=== PATIENT | female | born 1935 | race Caucasian/White ===

== ENCOUNTER 2016-11-25 18:41 | Emergency (ER) | payer MEDICARE, BC ==
[~2016-11-25] VITALS: Ht 165.1 cm; Wt 68.7 kg
[~2016-11-25 18:41] MED LIST: CLOP75 PO; DEXI30CA2 PO; ENAL20TA PO; GLUCTAB PO; KCL10C PO; NITR.2T TD; RALO1TAB13 PO; RIVA9.5T TD; ROSU10 PO; SERT-132 PO; TOPR50TA PO; VITA500015 PO
[2016-11-25 18:54] VITALS: BP 191/124; PULSE 101; RESP 16; TEMP 99.7; O2SAT 97
[2016-11-25 19:11] VITALS: BP 163/94
[2016-11-25] MEDS ORDERED: NITR1SUB3 SL (19:40)
[2016-11-25] MEDS ORDERED: POTA10CA PO (19:40)
[2016-11-25] MEDS ORDERED: METF500T PO (19:40)
[2016-11-25] MEDS ORDERED: QUET1TAB9 PO (19:40)
[2016-11-25] MEDS ORDERED: METO25TA6 PO (19:40)
[2016-11-25] MEDS ORDERED: CLOP75TA PO (19:40)
[2016-11-25] MEDS ORDERED: MEMA21CA PO (19:40)
[2016-11-25] MEDS ORDERED: ROSU10 PO (19:40)
[2016-11-25] MEDS ORDERED: CHLO25TA2 PO (19:40)
[2016-11-25] MEDS ORDERED: CELE1CAP8 PO (19:40)
[2016-11-25] MEDS ORDERED: CIPR250T52 PO (19:40)
[2016-11-25] MEDS ORDERED: ALPR0.25 PO (19:40)
[2016-11-25] MEDS ORDERED: NITR0.2D T-DERMAL (19:40)
[2016-11-25] MEDS ORDERED: DEXI60CA PO (19:40)
[2016-11-25] MEDS ORDERED: ENAL20TA PO (19:40)
[2016-11-25] MEDS ORDERED: SERT-129 PO (19:40)
[2016-11-25 20:00] VITALS: BP 178/101
[2016-11-25] MEDS ORDERED: ONDANSETRON HCL 4 MG/2 ML VIAL IV PUSH ONE (20:00)
[2016-11-25] MEDS ORDERED: SODIUM CHLORIDE 0.9% FLUSH 5 ML FLUSH IVF PRN (20:00)
[2016-11-25] MEDS ORDERED: PANTOPRAZOLE SODIUM 40 MG VIAL IV PUSH ONE (20:00)
[2016-11-25 20:14] LABS: BLOOD, URINE SMALL (NEG); GLUCOSE,URINE NEG (NEG); KETONE, URINE NEG (NEG); NITRITE,URINE NEG (NEG)
[2016-11-25 20:17] LABS: AUTOMATED NEUTROPHIL # 5.1 TH/MM3 (1.8-7.7); BASOPHIL # 0.1 TH/MM3 (0-0.2); BASOPHIL % 0.9 % (0.0-2.0); EOSINOPHIL # 0.1 TH/MM3 (0-0.4); EOSINOPHIL % 1.4 % (0.0-4.0); HEMATOCRIT 47.1 % (35.0-46.0); HEMO FLAGS DIFF FINAL; LYMPH % 16.1 % (9.0-44.0); LYMPHOCYTE # 1.1 TH/MM3 (1.0-4.8); MEAN CELL VOLUME 84.1 FL (80.0-100.0); MEAN CORPUSCULAR HEMOGLOBIN 27.1 PG (27.0-34.0); MEAN CORPUSCULAR HGB CONC 32.2 % (32.0-36.0); MONO % 9.6 % (0.0-8.0); PLATELET COUNT 262 TH/MM3 (150-450); RED BLOOD COUNT 5.61 MIL/MM3 (4.00-5.30); RED CELL DISTRIBUTION WIDTH 14.2 % (11.6-17.2); WHITE BLOOD COUNT 7.1 TH/MM3 (4.0-11.0)
[2016-11-25 20:22] LABS: CHLORIDE 104 MEQ/L (98-107); POTASSIUM 3.3 MEQ/L (3.5-5.1); SODIUM (NA) 141 MEQ/L (136-145)
[2016-11-25 20:23] LABS: URINE COLOR YELLOW (YELLW/STRAW)
[2016-11-25 20:25] LABS: COMMENT (UR) CATH-CULT NOT IND; CULTURE IF INDICATED CATH CULTURE NOT IND; MUCUS URINE MOD /lpf (OCC); RBC, URINE 0-3 /hpf (0-3); WBC, URINE 0-2 /hpf (0-5)
[2016-11-25 20:26] LABS: ANION GAP 11 MEQ/L (5-15); APTT (PATIENT) 24.9 SEC (24.3-30.1); BICARBONATE 25.8 MEQ/L (21.0-32.0); BLOOD UREA NITROGEN 15 MG/DL (7-18); INTERNATIONAL NORMALIZED RATIO 1.1 RATIO; PROTHROMBIN TIME - PATIENT 11.8 SEC (9.8-11.6)
[2016-11-25 20:28] LABS: ALT (GPT) 18 U/L (10-53); AST (GOT) 22 U/L (15-37)
[2016-11-25 20:29] LABS: GLOMERULAR FILTRATION RATE 48 ML/MIN (>89)
[2016-11-25 20:30] LABS: TOTAL BILIRUBIN ADULT 0.7 MG/DL (0.2-1.0)
[2016-11-25 20:31] LABS: ALKALINE PHOSPHATASE 59 U/L (45-117); CREATINE KINASE 139 U/L (26-192)
--- NOTE | 2016-11-25 20:38 | RADHPO ---
EXAM DATE/TIME: 11/25/2016 20:22 [facility] COMPARISON: No previous studies available for comparison. INDICATIONS : Shortness of breath. MEDICAL HISTORY : Hypertension. Myocardial infarction. SURGICAL HISTORY : Stents. Cardiac cath. ENCOUNTER: Initial ACUITY: 1 day PAIN SCORE: 0/10 LOCATION: Bilateral chest FINDINGS: A single view of the chest demonstrates the lungs to be symmetrically aerated without evidence of mas s, infiltrate or effusion. The cardiomediastinal contours are unremarkable. Osseous structures are intact. CONCLUSION: No acute disease. Mele Morris MD on November 25, 2016 at 20:37 Board Certified Radiologist. This report was verified electronically.
[2016-11-25 20:47] LABS: CKMB 2.3 NG/ML (0.5-3.6)
[2016-11-25] MEDS ORDERED: PIPERACIL-TAZO 3.375 GM PREMIX 50 ML IV ONE (21:00)
[2016-11-25 21:01] VITALS: BP 176/96; PULSE 83; RESP 18; TEMP 97.5; O2SAT 95
[2016-11-25] MEDS ORDERED: SODIUM CHLORID 0.9% 500 ML INJ 500 ML IV ONE (21:45)
[2016-11-25] MEDS ORDERED: POTASSIUM CHLORIDE 20 MEQ CONTROLLED RELEASE TAB PO ONE (21:45)
[2016-11-25 22:08] VITALS: BP 172/95; PULSE 92; RESP 18; O2SAT 95
[2016-11-25] MEDS ORDERED: IOHEXOL 300 MG/ML 100 ML BTL (for Rad CT) IV ONE (22:12)
--- NOTE | 2016-11-25 22:14 | RADHPO ---
EXAM DATE/TIME: 11/25/2016 21:48 [facility] COMPARISON: No previous studies available for comparison. INDICATIONS : Altered mental status. RADIATION DOSE: 59.13 CTDIvol (mGy) MEDICAL HISTORY : Diabetes mellitus type 2. Hypertension. Dementia. SURGICAL HISTORY : Coronary artery stent. Kyphoplasty. ENCOUNTER: Initial ACUITY: 1 day PAIN SCALE: 4/10 LOCATION: cranial TECHNIQUE: Multiple contiguous axial images were obtained of the head. Using automated exposure control and adj ustment of the mA and/or kV according to patient size, radiation dose was kept as low as reasonably a chievable to obtain optimal diagnostic quality images. FINDINGS: No signs of acute infarct, intracranial hemorrhage, or mass. There is patchy periventricular white ma tter disease most likely on the basis of chronic microvascular ischemic disease. Chronic opacificatio n right maxillary sinus. No fractures. CONCLUSION: No acute disease. Mele Morris MD on November 25, 2016 at 22:12 Board Certified Radiologist. This report was verified electronically.
--- NOTE | 2016-11-25 22:16 | RADHPO ---
EXAM DATE/TIME: 11/25/2016 21:53 [facility] COMPARISON: No previous studies available for comparison. INDICATIONS : Abdominal pain. IV CONTRAST: 100 cc Omnipaque 300 (iohexol) IV ORAL CONTRAST: No oral contrast ingested. RADIATION DOSE: 9.88 CTDIvol (mGy) MEDICAL HISTORY : Hypertension. Diabetes mellitus type 2. Dementia. SURGICAL HISTORY : Kyphoplasty. Coronary artery stent. ENCOUNTER: Initial ACUITY: 1 day PAIN SCALE: 4/10 LOCATION: Bilateral abdomen/pelvis. TECHNIQUE: Volumetric scanning of the abdomen and pelvis was performed. Using automated exposure control and ad justment of the mA and/or kV according to patient size, radiation dose was kept as low as reasonably achievable to obtain optimal diagnostic quality images. FINDINGS: Small hiatal hernia. Liver, gallbladder, spleen, pancreas, adrenal glands, right kidney are unremarka ble. There is a small cortical cyst left mid pole kidney anteriorly measuring 9.6 mm and parapelvic c ysts of the left kidney are suspected. Urinary bladder, uterus and ovaries are unremarkable. Small fa t containing left inguinal hernia. No inflammatory changes are seen within the abdomen or pelvis. Den se calcification of the mitral anulus is noted. No inflammatory changes are seen. Atherosclerotic moody cifications of the aorta and iliac vessels are seen. There is evidence of previous compression deform ity at L5 of moderate severity with kyphoplasty cement seen. Lung bases are clear. CONCLUSION: No acute disease. Mele Morris MD on November 25, 2016 at 22:13 Board Certified Radiologist. This report was verified electronically.
[2016-11-25] MEDS ORDERED: PROM25TA5 PO (23:10)
--- NOTE | 2016-11-25 23:14 | PD ---
HPI Chief Complaint: Complaint Time Seen by Provider: 19:55 Travel History International Travel<30 days: No Contact w/Intl Traveler<30days: No Traveled to known affect area: No History of Present Illness HPI 80-year-old female presents to the emergency department by private transportation in the care of family for evaluation of possible UTI and agitation. According to the family patient has dementia and memory disturbance and since Thursday has been agitated. Previous episodes of similar presentation of or related to a urinary tract infection. Patient's primary care provider Dr. Ojeda was notified on Thursday and Cipro as prescribed over the phone and patient has had 6 doses of Cipro. Family is still concerned because today she had poor appetite and she might be nauseated or trying to vomit. Family members have not noticed fever or temperature elevation. Patient lives in her own home but has 24 hour day nursing support. Patient's had no recent injury or fall reportedly. Patient has not complained of any area of discomfort although seems to have some type of discomfort related to her abdomen. No report of diarrhea. No report of any recent respiratory illness symptoms. Patient does have history of heart disease with previous stent placement times one, also history of memory impairment/dementia, diminished hearing, hypertension, dyslipidemia, diabetes, and anxiety depression. PFSH Past Medical History Narrative Medical CAD, cardiac catheterization with stent 1, dyslipidemia, hypertension, diabetes , dementia, impaired hearing, lupus, kyphoplasty, no tobacco use no alcohol use no substance use, family history CAD, nursing notes reviewed Arthritis: Yes Asthma: No Autoimmune Disease: Yes (lupus) Anxiety: Yes Depression: No Heart Rhythm Problems: No Cancer: No Cardiac Catheterization: Yes Cardiovascular Problems: Yes (htn on meds, OH x 1 stent) High Cholesterol: No Chest Pain: No Congestive Heart Failure: No COPD: No Cerebrovascular Accident: No Dementia: Yes (ON NAMENDA AND EXELON) Diabetes: Yes (type 2) Patient Takes Glucophage: Yes Diminished Hearing: Yes ([place]KAH) Endocrine: No Gastrointestinal Disorders: No Genitourinary: No Headaches: No Hepatitis: No Hiatal Hernia: No Hypertension: Yes Medical other: Yes (ARTHRITIS,HIGH CHOLESTEROL) Musculoskeletal: Yes (carpal tunnel syndrome in both hands) Psychiatric: No Respiratory: No Immunizations Current: No Myocardial Infarction: Yes Seizures: No Sickle Cell Disease: No Sleep Apnea: No Thyroid Disease: No Tetanus Vaccination: < 5 Years ?: Not Menopausal: Yes Past Surgical History Abdominal Surgery: No AICD: No Cardiac Surgery: Yes (STENT) Coronary Artery Bypass Graft: No Ear Surgery: No Endocrine Surgery: No Eye Surgery: No Genitourinary Surgery: No Gynecologic Surgery: No Neurologic Surgery: Yes (KYPHOPLASTY) Oral Surgery: No Pacemaker: No Thoracic Surgery: No Other Surgery: Yes Family History Family Myocardial Infarction: Yes (FATHER) Social History Alcohol Use: No Tobacco Use: No Substance Use: No Allergies-Medications (Allergen,Severity, Reaction): Coded Allergies: No Known Allergies (Verified , 11/25/16) Reported Meds & Prescriptions Reported Meds & Active Scripts Active Phenergan (Promethazine HCl) 25 Mg Tab 25 Mg PO Q6H PRN Reported Chlorthalidone 25 Mg Tab 12.5 Mg PO DAILY Clopidogrel (Clopidogrel Bisulfate) 75 Mg Tab 75 Mg PO DAILY Nitroglycerin SL (Nitroglycerin) 0.4 Mg Subl 0.4 Mg SL DIRECTED PRN ONE TABLET UNDER THE TONGUE NEEDED FOR CHEST PAIN, MAY REPEAT EVERY FIVE MINUTES FOR A TOTAL OF 3 DOSES OR CALL 911 IF NO RELIEF Enalapril (Enalapril Maleate) 20 Mg Tab 20 Mg PO DAILY Crestor (Rosuvastatin Calcium) 10 Mg Tab 10 Mg PO DAILY Nitro-Dur Patch 24 HR (Nitroglycerin) 0.2 Mg/Hr Patch 0.2 Mg T-DERMAL DAILY Namenda Xr (Memantine) 21 Mg Caper 21 Mg PO DAILY Sertraline (Sertraline HCl) 100 Mg Tab 100 Mg PO DAILY Quetiapine (Quetiapine Fumarate) 200 Mg Tab 200 Mg PO BID Alprazolam 0.25 Mg Tab 0.25 Mg PO BID NEB PRN Metoprolol Succinate ER 24 HR (Metoprolol Succinate) 25 Mg Tab 25 Mg PO DAILY Dexilant (Dexlansoprazole) 60 Mg Cap 60 Mg PO DAILY Metformin (Metformin HCl) 500 Mg Tab 500 Mg PO BIDPC With meals Cipro (Ciprofloxacin HCl) 250 Mg Tab 250 Mg PO BID Review of Systems Except as stated in HPI: all other systems reviewed are Neg General / Constitutional: No: Fever, Chills HENT: No: Congestion Cardiovascular: No: Chest Pain or Discomfort Respiratory: No: Cough Gastrointestinal: Positive: Nausea, Abdominal Pain (possible per family none per patient), No: Vomiting Genitourinary: No: Dysuria, Decreased Urinary Output Musculoskeletal: No: Myalgias, Arthralgias, Limited ROM Skin: No Rash Neurologic: Positive: Change in Mentation, No: Weakness, Focal Abnormalities, Coordination Problem, Paresthesia, Incontinence Psychiatric: Positive: Anxiety Endocrine: No: Heat Intolerance, Cold Intolerance Hematologic/Lymphatic: No: Easy Bruising Physical Exam Narrative GENERAL: Well-developed well-nourished female in no acute distress no respiratory distress intermittently agitated with medical staff and physical exam but readily consolable by family members SKIN: Warm and dry. HEAD: Atraumatic. Normocephalic. EYES: Pupils equal and round. No scleral icterus. No injection or drainage. ENT: No nasal bleeding or discharge. Mucous membranes pink and moist. NECK: Trachea midline. No JVD. CARDIOVASCULAR: Regular rate and rhythm. RESPIRATORY: No accessory muscle use. Clear to auscultation. Breath sounds equal bilaterally. GASTROINTESTINAL: Abdomen soft, non-tender, nondistended. Hepatic and splenic margins not palpable. MUSCULOSKELETAL: Extremities without clubbing, cyanosis, or edema. No obvious deformities. NEUROLOGICAL: Awake and alert. No obvious cranial nerve deficits. Motor grossly within normal limits. Five out of 5 muscle strength in the arms and legs. Normal speech. PSYCHIATRIC: Appropriate mood and affect; insight and judgment normal. Data Data Last Documented VS Vital Signs Date Time Temp Pulse Resp B/P Pulse Ox O2 Delivery O2 Flow Rate FiO2 11/25/16 23:26 89 16 183/94 100 11/25/16 22:08 Room Air 11/25/16 21:01 97.5 Orders Complete Blood Count With Diff (11/25/16 19:55) Comprehensive Metabolic Panel (11/25/16 19:55) Lipase (11/25/16 19:55) Lactic Acid (11/25/16 19:55) Prothrombin Time / Inr (Pt) (11/25/16 19:55) Act Partial Throm Time (Ptt) (11/25/16 19:55) Urinalysis - C+S If Indicated (11/25/16 19:55) Ct Abd/Pel W Iv Contrast(Rout) (11/25/16 19:55) Iv Access Insert/Monitor (11/25/16 19:55) Ecg Monitoring (11/25/16 19:55) Oximetry (11/25/16 19:55) Sodium Chloride 0.9% Flush (Ns Flush) (11/25/16 20:00) Electrocardiogram (11/25/16 19:55) Chest, Single Ap (11/25/16 19:55) Blood Culture (11/25/16 19:55) Ct Brain W/O Iv Contrast(Rout) (11/25/16 ) Ckmb (Isoenzyme) Profile (11/25/16 19:55) Troponin I (11/25/16 19:55) Ondansetron Inj (Zofran Inj) (11/25/16 20:00) Pantoprazole Inj (Protonix Inj) (11/25/16 20:00) CKMB (11/25/16 19:57) CKMB% (11/25/16 19:57) Cath For Specimen (11/25/16 20:35) Piperacil-Tazo 3.375 Gm Premix (Zosyn 3. (11/25/16 21:00) Sodium Chlorid 0.9% 500 Ml Inj (Ns 500 M (11/25/16 21:45) Lactic Acid (11/25/16 21:50) Potassium Chloride (Kcl) (11/25/16 21:45) Iohexol 300 Inj (Rad Ct) (Omnipaque 300 (11/25/16 22:12) Labs Laboratory Tests Test 11/25/16 11/25/16 11/25/16 19:50 19:57 21:45 Urine Color YELLOW Urine Turbidity CLEAR Urine pH 6.0 Urine Specific [place] 1.018 Urine Protein 30 mg/dL Urine Glucose (UA) NEG mg/dL Urine Ketones NEG mg/dL Urine Occult Blood SMALL Urine Nitrite NEG Urine Bilirubin NEG Urine Leukocyte Esterase NEG Urine RBC 0-3 /hpf Urine WBC 0-2 /hpf Urine Mucus MOD /lpf Microscopic Urinalysis Comment CATH-CULT NOT IND Lactic Acid Level 3.0 mmol/L 2.3 mmol/L White Blood Count 7.1 TH/MM3 Red Blood Count 5.61 MIL/MM3 Hemoglobin 15.2 GM/DL Hematocrit 47.1 % Mean Corpuscular Volume 84.1 FL Mean Corpuscular Hemoglobin 27.1 PG Mean Corpuscular Hemoglobin 32.2 % Concent Red Cell Distribution Width 14.2 % Platelet Count 262 TH/MM3 Mean Platelet Volume 9.4 FL Neutrophils (%) (Auto) 72.0 % Lymphocytes (%) (Auto) 16.1 % Monocytes (%) (Auto) 9.6 % Eosinophils (%) (Auto) 1.4 % Basophils (%) (Auto) 0.9 % Neutrophils # (Auto) 5.1 TH/MM3 Lymphocytes # (Auto) 1.1 TH/MM3 Monocytes # (Auto) 0.7 TH/MM3 Eosinophils # (Auto) 0.1 TH/MM3 Basophils # (Auto) 0.1 TH/MM3 CBC Comment DIFF FINAL Differential Comment Prothrombin Time 11.8 SEC Prothromb Time International 1.1 RATIO Ratio Activated Partial 24.9 SEC Thromboplast Time Sodium Level 141 MEQ/L Potassium Level 3.3 MEQ/L Chloride Level 104 MEQ/L Carbon Dioxide Level 25.8 MEQ/L Anion Gap 11 MEQ/L Blood Urea Nitrogen 15 MG/DL Creatinine 1.10 MG/DL Estimat Glomerular Filtration 48 ML/MIN Rate Random Glucose 114 MG/DL Calcium Level 8.8 MG/DL Total Bilirubin 0.7 MG/DL Aspartate Amino Transf 22 U/L (AST/SGOT) Alanine Aminotransferase 18 U/L (ALT/SGPT) Alkaline Phosphatase 59 U/L Total Creatine Kinase 139 U/L Creatine Kinase MB 2.3 NG/ML Troponin I LESS THAN 0.02 NG/ML Total Protein 7.9 GM/DL Albumin 3.6 GM/DL Lipase 238 U/L [facility] Medical Decision Making Medical Screen Exam Complete: Yes Emergency Medical Condition: Yes Medical Record Reviewed: Yes Interpretation(s) EKG normal sinus rhythm rate 89 Q wave inferiorly with inverted T-wave in lead 3 age-indeterminate nonspecific essentially unchanged from EKG 10/08/14 Laboratory Tests Test 11/25/16 11/25/16 11/25/16 19:50 19:57 21:45 Urine Color YELLOW Urine Turbidity CLEAR Urine pH 6.0 Urine Specific [place] 1.018 Urine Protein 30 mg/dL Urine Glucose (UA) NEG mg/dL Urine Ketones NEG mg/dL Urine Occult Blood SMALL Urine Nitrite NEG Urine Bilirubin NEG Urine Leukocyte Esterase NEG Urine RBC 0-3 /hpf Urine WBC 0-2 /hpf Urine Mucus MOD /lpf Microscopic Urinalysis Comment CATH-CULT NOT IND Lactic Acid Level 3.0 mmol/L 2.3 mmol/L White Blood Count 7.1 TH/MM3 Red Blood Count 5.61 MIL/MM3 Hemoglobin 15.2 GM/DL Hematocrit 47.1 % Mean Corpuscular Volume 84.1 FL Mean Corpuscular Hemoglobin 27.1 PG Mean Corpuscular Hemoglobin 32.2 % Concent Red Cell Distribution Width 14.2 % Platelet Count 262 TH/MM3 Mean Platelet Volume 9.4 FL Neutrophils (%) (Auto) 72.0 % Lymphocytes (%) (Auto) 16.1 % Monocytes (%) (Auto) 9.6 % Eosinophils (%) (Auto) 1.4 % Basophils (%) (Auto) 0.9 % Neutrophils # (Auto) 5.1 TH/MM3 Lymphocytes # (Auto) 1.1 TH/MM3 Monocytes # (Auto) 0.7 TH/MM3 Eosinophils # (Auto) 0.1 TH/MM3 Basophils # (Auto) 0.1 TH/MM3 CBC Comment DIFF FINAL Differential Comment Prothrombin Time 11.8 SEC Prothromb Time International 1.1 RATIO Ratio Activated Partial 24.9 SEC Thromboplast Time Sodium Level 141 MEQ/L Potassium Level 3.3 MEQ/L Chloride Level 104 MEQ/L Carbon Dioxide Level 25.8 MEQ/L Anion Gap 11 MEQ/L Blood Urea Nitrogen 15 MG/DL Creatinine 1.10 MG/DL Estimat Glomerular Filtration 48 ML/MIN Rate Random Glucose 114 MG/DL Calcium Level 8.8 MG/DL Total Bilirubin 0.7 MG/DL Aspartate Amino Transf 22 U/L (AST/SGOT) Alanine Aminotransferase 18 U/L (ALT/SGPT) Alkaline Phosphatase 59 U/L Total Creatine Kinase 139 U/L Creatine Kinase MB 2.3 NG/ML Troponin I LESS THAN 0.02 NG/ML Total Protein 7.9 GM/DL Albumin 3.6 GM/DL Lipase 238 U/L Last Impressions Chest X-Ray 11/25/161954 Signed Impressions: Service Date/Time: Friday, November 25, 2016 20:22 - CONCLUSION: No acute disease. Mele Morris MD CT brain w/o: FINDINGS: No signs of acute infarct, intracranial hemorrhage, or mass. There is patchy periventricular white matter disease most likely on the basis of chronic microvascular ischemic disease. Chronic opacification right maxillary sinus. No fractures. CONCLUSION: No acute disease. Mele Morris MD on November 25, 2016 at 22:12 Board Certified Radiologist. This report was verified electronically. CT abd/pel w/ contrast: FINDINGS: Small hiatal hernia. Liver, gallbladder, spleen, pancreas, adrenal glands, right kidney are unremarkable. There is a small cortical cyst left mid pole kidney anteriorly measuring 9.6 mm and parapelvic cysts of the left kidney are suspected. Urinary bladder, uterus and ovaries are unremarkable. Small fat containing left inguinal hernia. No inflammatory changes are seen within the abdomen or pelvis. Dense calcification of the mitral anulus is noted. No inflammatory changes are seen. Atherosclerotic calcifications of the aorta and iliac vessels are seen. There is evidence of previous compression deformity at L5 of moderate severity with kyphoplasty cement seen. Lung bases are clear. CONCLUSION: No acute disease. Mele Morris MD on November 25, 2016 at 22:13 Board Certified Radiologist. This report was verified electronically. Differential Diagnosis Agitation, altered mental status, UTI, sepsis, ACS, OH, gastroenteritis, viral syndrome, diverticulitis, colitis Narrative Course IV access obtained specimens collected and sent for resulting EKG performed which reveals no acute ST elevation or injury pattern change prior Q wave noted inferiorly which is unchanged from 10/08/14 Patient administered IV fluid bolus 500 cc times one Lab values resulted found to be grossly within normal range except for lactic acid of 3.0 repeated 2 hours has decreased without any medication intervention other than IV fluids to 2.3 Extensive discussion conducted with patient as much as she can understand daughter at bedside and son-in-law at bedside as well as other daughter who is had to leave prior discussion conducted prior to her departure; family members want to take the patient home she does show evidence of improving from a objective/diagnostic standpoint she does take metformin and may be contributing somewhat to her lactic acid along with some mild dehydration; at this time there is no focality for infectious source of symptoms as well as on lab values or imaging studies. Patient's case discussed with her primary care provider who knows the patient very well yesterday patient on Cipro on Thursday. Plan will be to allow the patient to go home as family does not want her to stay as an observation and patient's primary is very access to see her tomorrow morning after 9 AM. Extensive conversation with family regarding no congestion no administration of metformin/Glucophage to the patient until well after 48 hours due to receiving IV contrast for imaging study reveals no acute process. Physician Communication Physician Communication discussed with Dr Ojeda--known well to patiient discussed in detail will see in office in the am family to call Diagnosis Primary Impression: Nausea Additional Impressions: Dementia Hypokalemia Diabetes mellitus type 2 Referrals: Vimal Ojeda MD 1 day Patient Instructions: General Instructions Additional Instructions: NO METFORMIN/GLUCOPHAGE USE FOR GREATER THAN [address] of CT ( may restart medication after Thursday11/28/16 after 12 noon) Complete current course of antibiotic Cipro as prescribed Follow-up with your primary care physician Dr. Ojeda call office in a.m. to schedule follow-up appointment times one day Return to the emergency department for any concerns or change in condition Increase fluid hydration Monitor temperature every 4 hours with thermometer and administer as needed acetaminophen/Tylenol every 4 hours for fever 100.4F or greater Med/Other Pt SpecificInfo: Prescription(s) given Scripts Promethazine (Phenergan)25 Mg Tab25 Mg PO Q6H PRN (Nausea/Vomiting) #7 TAB Ref 0 Prov:Lashonda Cuadra MD 11/25/16 Disposition: 01 DISCHARGE HOME Condition: Stable Lashonda Cuadra MD Nov 25, 2016 23:14
[2016-11-25 23:26] VITALS: BP 183/94
--- NOTE | 2016-11-26 22:36 | EKG ---
Date Performed: 11/25/2016 Time Performed: 20:01:14 PTAGE: 80 years EKG: Sinus rhythm Inferior T wave changes are nonspecific Borderline ECG PREVIOUS TRACING : 10/08/2014 12.37 Compared to prior tracing no significant change DOCTOR: Thomas Chavez Interpretating Date/Time 11/26/2016 22:33:03
== END 2016-11-25 23:29 | disposition home or self-care (01) ==
LOC: PHED 18:41
DX: F03.90 Unspecified dementia, unspecified severity, without behavioral disturbance, psychotic disturbance, mood disturbance, and anxiety (principal); E87.6 Hypokalemia; E11.9 Type 2 diabetes mellitus without complications; M32.9 Systemic lupus erythematosus, unspecified; F41.9 Anxiety disorder, unspecified; I10 Essential (primary) hypertension; I25.2 Old myocardial infarction; Z79.4 Long term (current) use of insulin; R94.31 Abnormal electrocardiogram [ECG] [EKG]
CPT/HCPCS: 70450; 71010; 74177; 80053; 81001; 82550; 82552; 83605; 83690; 84484; 85025; 85610; 85730; 87040; 93005; 96365; 96375; 99284; C9113; J2405; J2543; J7040; P9612; Q9967

== ENCOUNTER 2017-08-28 12:05 | Emergency (ER) | payer MEDICARE, BC ==
[~2017-08-28 12:05] MED LIST changes: +ALPR0.25 PO; +CHLO25TA2 PO; +CIPR250T52 PO; -CLOP75 PO; +CLOP75TA PO; -DEXI30CA2 PO; +DEXI60CA PO; -GLUCTAB PO; -KCL10C PO; +MEMA21CA PO; +METF500T PO; +METO25TA6 PO; -NITR.2T TD; +NITR0.2D T-DERMAL; +NITR1SUB3 SL; +PROM25TA5 PO; +QUET1TAB9 PO; -RALO1TAB13 PO; -RIVA9.5T TD; +SERT-129 PO; -SERT-132 PO; -TOPR50TA PO; -VITA500015 PO
[2017-08-28 12:20] VITALS: BP 136/86; PULSE 126; RESP 17; TEMP 97.5; O2SAT 96
[2017-08-28] MEDS ORDERED: DIGO0.127 PO (12:37)
[2017-08-28] MEDS ORDERED: CELE200C PO (12:37)
--- NOTE | 2017-08-28 12:44 | PD ---
HPI Chief Complaint: Cardiac Complaint Time Seen by Provider: 12:25 Travel History International Travel<30 days: No Contact w/Intl Traveler<30days: No Traveled to known affect area: No History of Present Illness HPI This patient is brought in by her caregiver. She has history of A. fib and has had issues with elevated heart rate lately. She takes digoxin and metoprolol. She had been taking 25 twice a day of metoprolol but that has been recently increased to 25 at night and 50 in the morning. Caregiver took her pulse today and noticed it was elevated and her physician advised her to bring her here. Patient has no chest pain or presyncopal symptoms. She actually feels very well. Severity is mild. Duration one day. Comes are partially alleviated by her medications. No exacerbating factors. PFSH Past Medical History Arthritis: Yes Asthma: No Autoimmune Disease: Yes (lupus) Anxiety: Yes Depression: No Heart Rhythm Problems: No Cancer: No Cardiac Catheterization: Yes Cardiovascular Problems: Yes High Cholesterol: No Chest Pain: No Congestive Heart Failure: No COPD: No Cerebrovascular Accident: No Dementia: Yes (ON NAMENDA AND EXELON) Diabetes: Yes Patient Takes Glucophage: Yes Diminished Hearing: Yes ([place]) Endocrine: No Gastrointestinal Disorders: No Genitourinary: No Headaches: No Hepatitis: No Hiatal Hernia: No Hypertension: Yes Medical other: Yes (ARTHRITIS,HIGH CHOLESTEROL) Musculoskeletal: Yes (carpal tunnel syndrome in both hands) Psychiatric: No Respiratory: No Immunizations Current: No Myocardial Infarction: Yes Seizures: No Sickle Cell Disease: No Sleep Apnea: No Thyroid Disease: No Menopausal: Yes Past Surgical History Abdominal Surgery: No AICD: No Cardiac Surgery: Yes (STENT) Coronary Artery Bypass Graft: No Ear Surgery: No Endocrine Surgery: No Eye Surgery: No Genitourinary Surgery: No Gynecologic Surgery: No Neurologic Surgery: Yes (KYPHOPLASTY) Oral Surgery: No Pacemaker: No Thoracic Surgery: No Other Surgery: Yes Family History Family Myocardial Infarction: Yes (FATHER) Social History Alcohol Use: No Tobacco Use: No Substance Use: No Allergies-Medications (Allergen,Severity, Reaction): Coded Allergies: No Known Allergies (Verified , 08/28/17) Reported Meds & Prescriptions Reported Meds & Active Scripts Active Reported Digox (Digoxin) 0.125 Mg Tab 0.125 Mg PO DAILY Celebrex (Celecoxib) 200 Mg Cap 200 Mg PO DAILY Nitroglycerin SL (Nitroglycerin) 0.4 Mg Subl 0.4 Mg SL DIRECTED PRN ONE TABLET UNDER THE TONGUE NEEDED FOR CHEST PAIN, MAY REPEAT EVERY FIVE MINUTES FOR A TOTAL OF 3 DOSES OR CALL 911 IF NO RELIEF Enalapril (Enalapril Maleate) 20 Mg Tab 20 Mg PO DAILY Nitro-Dur Patch 24 HR (Nitroglycerin) 0.2 Mg/Hr Patch 0.2 Mg T-DERMAL DAILY Namenda Xr (Memantine) 21 Mg Caper 21 Mg PO DAILY Sertraline (Sertraline HCl) 100 Mg Tab 100 Mg PO DAILY Quetiapine (Quetiapine Fumarate) 200 Mg Tab 200 Mg PO BID Alprazolam 0.25 Mg Tab 0.25 Mg PO BID NEB PRN Metoprolol Succinate ER 24 HR (Metoprolol Succinate) 25 Mg Tab 25 Mg PO DAILY Dexilant (Dexlansoprazole) 60 Mg Cap 60 Mg PO DAILY Metformin (Metformin HCl) 500 Mg Tab 500 Mg PO BIDPC With meals Review of Systems General / Constitutional: No: Fever Eyes: No: Visual changes HENT: No: Headaches Cardiovascular: Positive: Irregular Rhythm, Tachycardia, No: Chest Pain or Discomfort Respiratory: No: Shortness of Breath Gastrointestinal: No: Abdominal Pain Genitourinary: No: Dysuria Musculoskeletal: No: Pain Skin: No Rash Neurologic: No: Weakness Psychiatric: No: Depression Endocrine: No: Polydipsia Hematologic/Lymphatic: No: Easy Bruising Physical Exam Narrative GENERAL: Well-nourished, well-developed patient in no apparent distress. SKIN: Focused skin assessment reveals no rash and nodules. Skin is Warm and dry. HEAD: Atraumatic. Normocephalic. EYES: Pupils equal and round. No scleral icterus. No injection or drainage. ENT: No nasal bleeding or discharge. Mucous membranes pink and moist. NECK: Trachea midline. No JVD. CARDIOVASCULAR: Irregularly irregular rhythm. No murmur appreciated. Heart rate 130 RESPIRATORY: No accessory muscle use. Clear to auscultation. Breath sounds equal bilaterally. GASTROINTESTINAL: Abdomen soft, non-tender, nondistended. Hepatic and splenic margins not palpable. MUSCULOSKELETAL: No obvious deformities. No clubbing. No cyanosis. No edema. NEUROLOGICAL: Awake and alert. No obvious cranial nerve deficits. Motor grossly within normal limits. Normal speech. PSYCHIATRIC: Appropriate mood and affect; insight and judgment reduced from dementia Data Data Last Documented VS Vital Signs Date Time Temp Pulse Resp B/P (MAP) Pulse Ox O2 Delivery O2 Flow Rate FiO2 08/28/17 13:58 64 18 130/75 (93) 97 Room Air 08/28/17 12:20 97.5 Orders Orders Iv Access Insert/Monitor (08/28/17 12:39) Complete Blood Count With Diff (08/28/17 12:39) Basic Metabolic Panel (Bmp) (08/28/17 12:39) Electrocardiogram (08/28/17 ) Stacker Operator / Telemetry [id number].[id number] (08/28/17 12:39) Diltiazem Inj (Cardizem Inj) (08/28/17 12:45) Digoxin (08/28/17 12:40) Labs Laboratory Tests Test 08/28/17 12:44 White Blood Count 5.3 TH/MM3 Red Blood Count 5.62 MIL/MM3 Hemoglobin 15.3 GM/DL Hematocrit 48.0 % Mean Corpuscular Volume 85.5 FL Mean Corpuscular Hemoglobin 27.3 PG Mean Corpuscular Hemoglobin Concent 31.9 % Red Cell Distribution Width 13.7 % Platelet Count 304 TH/MM3 Mean Platelet Volume 9.2 FL Neutrophils (%) (Auto) 61.4 % Lymphocytes (%) (Auto) 22.2 % Monocytes (%) (Auto) 10.5 % Eosinophils (%) (Auto) 4.5 % Basophils (%) (Auto) 1.4 % Neutrophils # (Auto) 3.2 TH/MM3 Lymphocytes # (Auto) 1.2 TH/MM3 Monocytes # (Auto) 0.6 TH/MM3 Eosinophils # (Auto) 0.2 TH/MM3 Basophils # (Auto) 0.1 TH/MM3 CBC Comment DIFF FINAL Differential Comment Blood Urea Nitrogen 11 MG/DL Creatinine 1.10 MG/DL Random Glucose 93 MG/DL Calcium Level 8.3 MG/DL Sodium Level 140 MEQ/L Potassium Level 4.1 MEQ/L Chloride Level 103 MEQ/L Carbon Dioxide Level 30.8 MEQ/L Anion Gap 6 MEQ/L Estimat Glomerular Filtration Rate 48 ML/MIN Digoxin Level 1.3 NG/ML MDM Medical Decision Making Medical Screen Exam Complete: Yes Emergency Medical Condition: Yes Medical Record Reviewed: Yes Differential Diagnosis A. fib with RVR, dig toxicity, SVT Narrative Course I have reviewed the patient's electronic medical record. Reviewed her medical paperwork brought in by the caregiver. Reviewed her medication lists IV placed I reviewed her EKG which shows A. fib with RVR in the 120s Extended cardiac monitoring reveals A. fib with RVR CBC is normal Metabolic profile is reasonably normal Digoxin level is normal I gave her a dose of 15 mg IV Cardizem for rate control I observed her for 2.5 hours and she is doing fine. She feels fine and wants to go home. Her heart rate is in the 90s consistently Follow-up with Dr. Ojeda Diagnosis Primary Impression: Atrial fibrillation with RVR Additional Instructions: The patient was advised to follow up with their physician and return if they worsen. Med/Other Pt SpecificInfo: Other Disposition: 01 DISCHARGE HOME Condition: Stable Blake Small MD Aug 28, 2017 12:44
[2017-08-28] MEDS ORDERED: DILTIAZEM HCL 25 MG/5 ML VIAL IV ONE (12:45)
[2017-08-28 12:49] VITALS: PULSE 62; RESP 17
[2017-08-28 13:00] LABS: AUTOMATED NEUTROPHIL # 3.2 TH/MM3 (1.8-7.7); BASOPHIL # 0.1 TH/MM3 (0-0.2); BASOPHIL % 1.4 % (0.0-2.0); EOSINOPHIL # 0.2 TH/MM3 (0-0.4); EOSINOPHIL % 4.5 % (0.0-4.0); HEMO FLAGS DIFF FINAL; LYMPH % 22.2 % (9.0-44.0); LYMPHOCYTE # 1.2 TH/MM3 (1.0-4.8); MEAN CELL VOLUME 85.5 FL (80.0-100.0); MEAN CORPUSCULAR HEMOGLOBIN 27.3 PG (27.0-34.0); MEAN CORPUSCULAR HGB CONC 31.9 % (32.0-36.0); MONO % 10.5 % (0.0-8.0); NEUT % 61.4 % (16.0-70.0); PLATELET COUNT 304 TH/MM3 (150-450); RED BLOOD COUNT 5.62 MIL/MM3 (4.00-5.30); RED CELL DISTRIBUTION WIDTH 13.7 % (11.6-17.2); WHITE BLOOD COUNT 5.3 TH/MM3 (4.0-11.0)
[2017-08-28 13:12] LABS: BICARBONATE 30.8 MEQ/L (21.0-32.0)
[2017-08-28 13:18] LABS: POTASSIUM 4.1 MEQ/L (3.5-5.1)
[2017-08-28 13:58] VITALS: BP 130/75; PULSE 64; RESP 18; O2SAT 97
--- NOTE | 2017-08-28 15:54 | EKG ---
Date Performed: 08/28/2017 Time Performed: 12:17:57 PTAGE: 81 years EKG: ATRIAL FLUTTER/TACHYCARDIA WITH RAPID VENTRICULAR RESPONSE NONSPECIFIC ST & T-WAVE ABNORMAL ITY ABNORMAL ECG INTERPRETATION BASED ON A DEFAULT AGE OF 40 YEARS Compared to prior electrocardiogra m, probable atrial flutter and nonspecific ST T-wave changes are present. NO PREVIOUS TRACING DOCTOR: Aditya Lin Interpretating Date/Time 08/28/2017 15:54:00
== END 2017-08-28 14:46 | disposition home or self-care (01) ==
LOC: PHED 12:05
DX: I48.91 Unspecified atrial fibrillation (principal); M19.90 Unspecified osteoarthritis, unspecified site; M32.9 Systemic lupus erythematosus, unspecified; I10 Essential (primary) hypertension
CPT/HCPCS: 80048; 80162; 85025; 93005; 96374

== ENCOUNTER 2017-10-24 21:22 | Emergency (ER) | payer MEDICARE, BC ==
[~2017-10-24 21:22] MED LIST changes: +CELE200C PO; -CHLO25TA2 PO; -CIPR250T52 PO; -CLOP75TA PO; +DIGO0.127 PO; +METO1TAB42 PO; -METO25TA6 PO; -PROM25TA5 PO; -ROSU10 PO
[2017-10-24 21:38] VITALS: BP 184/90; PULSE 80; RESP 16; TEMP 97.4; O2SAT 96
[2017-10-24] MEDS ORDERED: SODIUM CHLOR 0.9% 1000 ML INJ 1,000 ML IV ONE ×2 (21:45→22:30)
[2017-10-24] MEDS ORDERED: SODIUM CHLORIDE 0.9% FLUSH 10 ML FLUSH IV FLUSH PRN (21:45)
[2017-10-24 22:04] LABS: ANION GAP 9 MEQ/L (5-15); AST (GOT) 19 U/L (15-37); BICARBONATE 29.1 MEQ/L (21.0-32.0); BLOOD UREA NITROGEN 23 MG/DL (7-18); CHLORIDE 102 MEQ/L (98-107); GLOMERULAR FILTRATION RATE 52 ML/MIN (>89); POTASSIUM 3.8 MEQ/L (3.5-5.1); SODIUM (NA) 140 MEQ/L (136-145)
[2017-10-24 22:07] LABS: ALKALINE PHOSPHATASE 57 U/L (45-117); ALT (GPT) 13 U/L (10-53); TOTAL BILIRUBIN ADULT 0.7 MG/DL (0.2-1.0)
[2017-10-24 22:18] LABS: BLOOD, URINE TRACE (NEG); COMMENT (UR) CATH-CULT NOT IND; CULTURE IF INDICATED CATH CULTURE NOT IND; GLUCOSE,URINE NEG (NEG); HYALINE CAST, URINE 1 /lpf (RARE); KETONE, URINE NEG (NEG); MUCUS URINE FEW /lpf (OCC); NITRITE,URINE NEG (NEG); PH, URINE 5.5 (5.0-8.5); URINE COLOR YELLOW (YELLW/STRAW)
[2017-10-24] MEDS ORDERED: ALPR0.5T3 PO (22:28)
[2017-10-24] MEDS ORDERED: TRAZ50TA12 PO (22:29)
--- NOTE | 2017-10-24 22:29 | PD ---
HPI . Altered mental status Chief Complaint: Altered Mental Status Time Seen by Provider: 21:31 Travel History International Travel<30 days: No Contact w/Intl Traveler<30days: No Traveled to known affect area: No History of Present Illness HPI This is a prison patient with dementia who was sent to us for altered mental status today. The prison reported no other complaints such as fever, coughing, vomiting or diarrhea. The patient is unable to offer any history. PFSH Past Medical History Arthritis: Yes Asthma: No Autoimmune Disease: Yes (lupus) Anxiety: Yes Depression: No Heart Rhythm Problems: No Cancer: No Cardiac Catheterization: Yes Cardiovascular Problems: Yes High Cholesterol: No Chest Pain: No Congestive Heart Failure: No COPD: No Cerebrovascular Accident: No Dementia: Yes (ON NAMENDA AND EXELON) Diabetes: Yes Patient Takes Glucophage: Yes Diminished Hearing: Yes ([place]) Endocrine: No Gastrointestinal Disorders: No Genitourinary: No Headaches: No Hepatitis: No Hiatal Hernia: No Hypertension: Yes Medical other: Yes (ARTHRITIS,HIGH CHOLESTEROL) Musculoskeletal: Yes (carpal tunnel syndrome in both hands) Psychiatric: No Respiratory: No Immunizations Current: No Myocardial Infarction: Yes Seizures: No Sickle Cell Disease: No Sleep Apnea: No Thyroid Disease: No Menopausal: Yes Past Surgical History Abdominal Surgery: No AICD: No Cardiac Surgery: Yes (STENT) Coronary Artery Bypass Graft: No Ear Surgery: No Endocrine Surgery: No Eye Surgery: No Genitourinary Surgery: No Gynecologic Surgery: No Neurologic Surgery: Yes (KYPHOPLASTY) Oral Surgery: No Pacemaker: No Thoracic Surgery: No Other Surgery: Yes Family History Family Myocardial Infarction: Yes (FATHER) Social History Alcohol Use: No Tobacco Use: No Substance Use: No Allergies-Medications (Allergen,Severity, Reaction): Coded Allergies: No Known Allergies (Verified Adverse Reaction, Unknown, 10/24/17) Reported Meds & Prescriptions Reported Meds & Active Scripts Active Reported Gabapentin 600 Mg Tab 600 Mg PO HS Trazodone (Trazodone HCl) 50 Mg Tab 50 Mg PO HS Alprazolam 0.5 Mg Tab 0.5 Mg PO HS PRN Digox (Digoxin) 0.125 Mg Tab 0.125 Mg PO DAILY Celebrex (Celecoxib) 200 Mg Cap 200 Mg PO DAILY Nitroglycerin SL (Nitroglycerin) 0.4 Mg Subl 0.4 Mg SL DIRECTED PRN ONE TABLET UNDER THE TONGUE NEEDED FOR CHEST PAIN, MAY REPEAT EVERY FIVE MINUTES FOR A TOTAL OF 3 DOSES OR CALL 911 IF NO RELIEF Nitro-Dur Patch 24 HR (Nitroglycerin) 0.2 Mg/Hr Patch 0.2 Mg T-DERMAL DAILY Namenda Xr (Memantine) 21 Mg Caper 21 Mg PO DAILY Sertraline (Sertraline HCl) 100 Mg Tab 100 Mg PO DAILY Quetiapine (Quetiapine Fumarate) 200 Mg Tab 200 Mg PO BID Metoprolol Succinate ER 24 HR (Metoprolol Succinate) 25 Mg Tab 25 Mg PO DAILY Metformin (Metformin HCl) 500 Mg Tab 500 Mg PO BIDPC With meals Review of Systems ROS Limitations: Altered Mental Status Physical Exam Narrative GENERAL: Awake and alert. She is speaking better speech makes no sense. SKIN: warm/dry. HEAD: Normocephalic. Atraumatic. EYES: Pupils equal and round. No scleral icterus. No injection or drainage. ENT: No nasal bleeding or discharge. Mouth is dry. NECK: Trachea midline. Full range of motion without pain.. CARDIOVASCULAR: Regular rate and rhythm. Heart sounds are normal. RESPIRATORY: No accessory muscle use. Clear to auscultation. Breath sounds equal bilaterally. GASTROINTESTINAL: Abdomen soft. Nontender. Bowel sounds present. Nondistended. MUSCULOSKELETAL: No obvious deformities. NEUROLOGICAL: Awake. No focal neurological deficits noted. PSYCHIATRIC: Unable to assess. Data Data Last Documented VS Vital Signs Date Time Temp Pulse Resp B/P (MAP) Pulse Ox O2 Delivery O2 Flow Rate FiO2 10/24/17 21:42 96 Room Air 10/24/17 21:38 97.4 80 16 184/90 (121) Orders Orders Basic Metabolic Panel (Bmp) (10/24/17 21:31) Comprehensive Metabolic Panel (10/24/17 21:31) Urinalysis - C+S If Indicated (10/24/17 21:31) Iv Access Insert/Monitor (10/24/17 21:31) Cath For Specimen (10/24/17 21:31) Sodium Chloride 0.9% Flush (Ns Flush) (10/24/17 21:45) Sodium Chlor 0.9% 1000 Ml Inj (Ns 1000 M (10/24/17 21:45) Complete Blood Count With Diff (10/24/17 22:29) Sodium Chlor 0.9% 1000 Ml Inj (Ns 1000 M (10/24/17 22:30) Morphine Inj (Morphine Inj) (10/24/17 23:45) Ondansetron Inj (Zofran Inj) (10/24/17 23:45) Ct Abd/Pel W Iv Contrast(Rout) (10/24/17 23:45) Iohexol 350 Inj (Omnipaque 350 Inj) (10/25/17 00:33) Cath For Specimen (10/25/17 01:10) Labs Laboratory Tests Test 10/24/17 21:36 10/24/17 21:59 10/24/17 23:25 Blood Urea Nitrogen 23 MG/DL Creatinine 1.02 MG/DL Random Glucose 102 MG/DL Total Protein 7.0 GM/DL Albumin 3.3 GM/DL Calcium Level 7.9 MG/DL Alkaline Phosphatase 57 U/L Aspartate Amino Transf (AST/SGOT) 19 U/L Alanine Aminotransferase (ALT/SGPT) 13 U/L Total Bilirubin 0.7 MG/DL Sodium Level 140 MEQ/L Potassium Level 3.8 MEQ/L Chloride Level 102 MEQ/L Carbon Dioxide Level 29.1 MEQ/L Anion Gap 9 MEQ/L Estimat Glomerular Filtration Rate 52 ML/MIN Urine Color YELLOW Urine Turbidity CLEAR Urine pH 5.5 Urine Specific [place] 1.012 Urine Protein TRACE mg/dL Urine Glucose (UA) NEG mg/dL Urine Ketones NEG mg/dL Urine Occult Blood TRACE Urine Nitrite NEG Urine Bilirubin NEG Urine Urobilinogen 2.0 MG/DL Urine Leukocyte Esterase NEG Urine RBC LESS THAN 1 /hpf Urine WBC LESS THAN 1 /hpf Urine Hyaline Casts 1 /lpf Urine Mucus FEW /lpf Microscopic Urinalysis Comment CATH-CULT NOT IND White Blood Count 7.2 TH/MM3 Red Blood Count 5.08 MIL/MM3 Hemoglobin 14.7 GM/DL Hematocrit 44.4 % Mean Corpuscular Volume 87.4 FL Mean Corpuscular Hemoglobin 29.0 PG Mean Corpuscular Hemoglobin Concent 33.1 % Red Cell Distribution Width 14.7 % Platelet Count 131 TH/MM3 Mean Platelet Volume 9.3 FL Neutrophils (%) (Auto) 68.1 % Lymphocytes (%) (Auto) 19.6 % Monocytes (%) (Auto) 11.2 % Eosinophils (%) (Auto) 0.8 % Basophils (%) (Auto) 0.3 % Neutrophils # (Auto) 4.9 TH/MM3 Lymphocytes # (Auto) 1.4 TH/MM3 Monocytes # (Auto) 0.8 TH/MM3 Eosinophils # (Auto) 0.1 TH/MM3 Basophils # (Auto) 0.0 TH/MM3 CBC Comment DIFF FINAL Differential Comment MDM Medical Decision Making Medical Screen Exam Complete: Yes Emergency Medical Condition: Yes Medical Record Reviewed: Yes (medical history includes dementia, diabetes, hypertension, atrial fibrillation with RVR.) Differential Diagnosis Differential diagnosis of altered mental status includes but is not limited to infection, electrolyte abnormality, neurological event, intoxication Narrative Course Patient presents to us for evaluation of altered level of consciousness. She has a history of dementia. Clinically, she looks dehydrated. CBC Diagram 10/24/17 23:25 BMP Diagram 10/24/17 21:36 Total Protein 7.0, Albumin 3.3 L, Calcium Level 7.9 L, Alkaline Phosphatase 57, Aspartate Amino Transf (AST/SGOT) 19, Alanine Aminotransferase (ALT/SGPT) 13, Total Bilirubin 0.7 UA>> negative for infection. This patient is now complaining of lower abdominal pain. I have added a CT of her abdomen and pelvis to her workup. CT abd/pelvis: 1. Atherosclerosis. 2. Trace perinephric fluid and perinephric stranding identified with mild pelviectasis and moderate urinary bladder distention. 3. Scattered diverticuli in the colon without diverticulitis. 4. Left renal cysts. I asked the nurses to place a Warner catheter to drain her bladder. They report over 1500 cc of urine out so far. The patient's lower abdominal pain has completely resolved. She will be [facility] back to the prison with a Warner catheter in place. Diagnosis Primary Impression: Altered mental status Qualified Codes: R41.82 - Altered mental status, unspecified Additional Impression: Acute urinary retention Patient Instructions: Acute Urinary Retention in Women (ED), General Instructions Disposition: 01 DISCHARGE HOME Condition: Stable Megan Elder MD Oct 24, 2017 22:29
[2017-10-24] MEDS ORDERED: GABA600T PO (22:44)
[2017-10-24 23:39] LABS: AUTOMATED NEUTROPHIL # 4.9 TH/MM3 (1.8-7.7); BASOPHIL % 0.3 % (0.0-2.0); EOSINOPHIL # 0.1 TH/MM3 (0-0.4); EOSINOPHIL % 0.8 % (0.0-4.0); HEMATOCRIT 44.4 % (35.0-46.0); HEMO FLAGS DIFF FINAL; LYMPH % 19.6 % (9.0-44.0); LYMPHOCYTE # 1.4 TH/MM3 (1.0-4.8); MEAN CELL VOLUME 87.4 FL (80.0-100.0); MEAN CORPUSCULAR HGB CONC 33.1 % (32.0-36.0); MONO % 11.2 % (0.0-8.0); NEUT % 68.1 % (16.0-70.0); PLATELET COUNT 131 TH/MM3 (150-450); RED BLOOD COUNT 5.08 MIL/MM3 (4.00-5.30); RED CELL DISTRIBUTION WIDTH 14.7 % (11.6-17.2); WHITE BLOOD COUNT 7.2 TH/MM3 (4.0-11.0)
[2017-10-24] MEDS ORDERED: ONDANSETRON HCL 4 MG/2 ML VIAL IV PUSH ONE (23:45)
[2017-10-24] MEDS ORDERED: MORPHINE SULFATE 4 MG/ML INJ IV PUSH ONE (23:45)
[2017-10-25] MEDS ORDERED: IOHEXOL 350 MG/ML 10 ML VIAL (for RAD DIAG) IVCONTRAST ONE (00:33)
--- NOTE | 2017-10-25 00:55 | RADRPT ---
EXAM DATE/TIME: 10/25/2017 00:32 [facility] COMPARISON: CT ABDOMEN & PELVIS W CONTRAST, November 25, 2016, 21:53. INDICATIONS : Abdominal pain. IV CONTRAST: 80 cc Omnipaque 350 (iohexol) IV ORAL CONTRAST: No oral contrast ingested. RADIATION DOSE: 6.60 CTDIvol (mGy) MEDICAL HISTORY : Dementia. Cardiovascular disease Hypertension.Diabetes SURGICAL HISTORY : None. ENCOUNTER: Initial ACUITY: 1 day PAIN SCALE: Non-responsive LOCATION: abdomen TECHNIQUE: Volumetric scanning of the abdomen and pelvis was performed. Using automated exposure control and ad justment of the mA and/or kV according to patient size, radiation dose was kept as low as reasonably achievable to obtain optimal diagnostic quality images. DICOM format image data is available electro nically for review and comparison. FINDINGS: Mild dependent atelectatic changes are noted at the lung bases. Coronary artery calcification and den se calcification of the mitral annulus noted. No pleural or pericardial effusions. Liver, gallbladder , spleen, pancreas, adrenal glands are unremarkable. The uterus and adnexal regions are unremarkable. There is moderate distention of the urinary bladder with mild bilateral pelviectasis. A few scattere d colonic diverticuli are noted. No adenopathy or aneurysm. Diffuse atherosclerotic calcification of the aorta and iliac vessels are noted. There is trace bilateral perinephric fluid and perinephric str anding. There is no evidence for bowel obstruction. Small hiatal hernia. The subcentimeter cyst left midpole kidney anteriorly and parapelvic cysts are noted of the left kidney. There are degenerative c hanges of the spine seen. The patient has had kyphoplasty at the L5 vertebral body level. CONCLUSION: 1. Atherosclerosis. 2. Trace perinephric fluid and perinephric stranding identified with mild pelviectasis and moderate u rinary bladder distention. 3. Scattered diverticuli in the colon without diverticulitis. 4. Left renal cysts. Mele Morris MD on October 25, 2017 at 0:50 Board Certified Radiologist. This report was verified electronically.
[2017-10-25 03:09] VITALS: BP 179/72; PULSE 72; RESP 14; O2SAT 99
[2017-10-25 09:00] VITALS: BP 172/87; PULSE 72; RESP 16; TEMP 97.8; O2SAT 92
== END 2017-10-25 11:30 | disposition home or self-care (01) ==
LOC: NEPE 21:22
DX: F03.90 Unspecified dementia, unspecified severity, without behavioral disturbance, psychotic disturbance, mood disturbance, and anxiety (principal); R33.9 Retention of urine, unspecified; N28.1 Cyst of kidney, acquired; E11.9 Type 2 diabetes mellitus without complications; I10 Essential (primary) hypertension; Z79.84 Long term (current) use of oral hypoglycemic drugs
CPT/HCPCS: 74177; 80053; 81001; 85025; 96374; 96375; 99285; J2270; J2405; J7030; Q9967